=== PATIENT | female | born 1955 | race Caucasian/White ===

== ENCOUNTER 2018-09-17 18:48 | Emergency (ER) | payer OTHER ==
[~2018-09-17] VITALS: Ht 160 cm; Wt 73.0 kg
[2018-09-17 19:09] VITALS: BP 138/77
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
[2018-09-17] MEDS ORDERED: LIDOCAINE-MPF 1%, 5ML INFIL ONE (19:30)
[2018-09-17] MEDS ORDERED: LIDOCAINE-MPF 1%, 5ML ONE (19:51)
[2018-09-17] MEDS ORDERED: BACITRACIN ZINC OINT 500U/GM, 0.9 GM ONE (19:56)
--- NOTE | 2018-09-17 20:53 | NUR ---
REPORT GIVEN TO ESTEBAN FRANKS.
== END 2018-09-17 21:28 | disposition home or self-care (01) ==
LOC: ED 21:17
DX: S61.412A Laceration without foreign body of left hand, initial encounter (principal); Z90.49 Acquired absence of other specified parts of digestive tract; Z90.710 Acquired absence of both cervix and uterus; W26.0XXA Contact with knife, initial encounter; Y93.89 Activity, other specified; Y92.009 Unspecified place in unspecified non-institutional (private) residence as the place of occurrence of the external cause; Y99.8 Other external cause status
CPT/HCPCS: 12041; 99284